=== PATIENT | female | born 1935 | race Caucasian/White ===

== ENCOUNTER 2024-08-17 12:03 | Outpatient (REF) | payer MEDICARE, SELFPAY ==
--- OUTSIDE RECORDS SUMMARY | 2024-08-17 12:06 | XMS_ITS ---
Author Organization [facility] Address [address] [place] [address] Care Team Providers Care Vp Director Of Creative Strategy Name Role Phone Gosia Butts MD Primary Care Provider Unavaila len Barrett, Janine Unavailable [phone] REASON FOR VISIT ON Encounters Encounter Location Date Provider Diagnosis [facility] [address] [place] [address] 11/03/2023 Janine Barrett Plan Of Treatment No Information Progress Notes * RAJIENMADonna OB:1935 (88 yo F)Acc No.[id number]:11/03/2023 Patient:?Chuyita Gardner :1935???Age:88 Y???Sex:Female [place], * true * Date:? Generated for Pricei rajat/Heron/eTransmitting on:?08/17/2024 12:06 PM EDT
--- OUTSIDE RECORDS SUMMARY | 2024-08-17 12:06 | XMS_ITS ---
Author Organization [facility] [place] Address [address] [place] [address] Care Team Providers Care Ledge Man Name Role Phone Gosia Butts MD Primary Care Provider Unavaila len Black, Janine Unavailable [phone] Allergies Allergen (clinical drug ingredient) Drug/Non Drug Allergy documented on EMR Reaction Allergy Type Onset Date Status alendronate Alendronate Sodium May affect hip Drug Allergy Active meperidine Demerol Unknown Drug Allergy Active lisinopril Lisinopril Unknown Drug Allergy Activ e naproxen Naprosyn nausea Drug Allergy Active Nifedical XL Unknown Drug Allergy Acti ve oxycodone Oxycodone Unknown Drug Allergy Active Results Component Value Reference Range Notes X ray : Foot, right 3V Reviewed date:02/01/2024 12:43:21 PM Interpretation:See Examination above Performing Lab: Notes/Report: See Examination above REASON FOR VISIT pcp-11/2023, Foot pain Medications Medication SIG (Take, Route, Frequency, Duration) Notes Start Date End Date Status Atenolol 50 MG 1 tablet Orally Once a day for 30 day(s) Active Omeprazole 20 MG 1 capsule Orally Onc e a day for 30 day(s) Active Alendronate Sodium 70 MG 1 tablet Orally for 30 day(s) Unknown Amoxicillin Active Losartan Potassium 50 MG 1 tablet Orally Once a day for 30 day(s) Active Estradiol 0.1 MG/GM as directed Vaginal Active Calcium 600-200 MG-UNIT as directed Orally Active Centrum Silver - as directed Orally Active Iron Complex - as directed Orally Active Aspirin 81 MG 1 tablet Orally Once a day for 30 day(s) Active hydroCHLOROthiazide 25 MG 1 tablet in th e morning Orally Once a day for 30 day(s) Active Klor-Con 10 10 MEQ 1 tablet with food Orally Twice a day for 30 day(s) Active Pravastatin Sodium 40 MG 1 tablet Orally Once a day for 30 day(s) Active Levothyroxine Sodium 75 MCG 1 tablet on an empty stomach in the morning Orally Once a day for 30 day(s) Active Social History Tobacco Use: Social History Observation Description Date Details (start date - stop date) Never Smoker NA - NA Tobacco Use/Smoking Question Answer Notes Are you a: nonsmoker Additional Findings: Tobacco Non-User Current no n-smoker Alcohol Screen Question Answer Notes Did you have a drink contain ing alcohol in the past year? Yes How often did you have a dri nk containing alcohol in the past year? Monthly or less (1 point) Points 1 Interpretation Negative Tobacco use other than smoking: Question Answer Notes Are you an other tobacco user? 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 Problem Hammer toe of right foot (M20.41) Active confirmed Vital Signs Height 5 ft 1 in in 02/01/2024 Weight 143 lbs 02/01/2024 BMI 27.02 kg/m2 02/01/2024 Encounters Encounter Location Date Provider Diagnosis [facility] [address] [address] 02/01/2024 Janine Black Pain in right foot M79.671 ; Javed's neuroma of right foot G57.61 ; Neuralgia and neuritis, unspecified M79.2 and Hammer toe of right foot M20.41 Assessments Encounter Date Diagnosis (ICD Code) Assessment Notes Treatment Notes Treatment Clinical Notes Section Notes 02/01/2024 Pain in right foot (ICD-10 - M79.671) 02/01/2024 Javed's neuroma of right foot (ICD-10 - G57.61) 02/01/2024 Neuralgia and neuritis, unspecified (ICD-10 - M79.2) 02/01/2024 Hammer toe of right foot (ICD-10 - M20.41) Plan Of Treatment Next Appt Details Follow Up: prn, Reason: Progress Notes * Donna WALLACE LD OB:1935 (88 yo F)Acc No.[id number]:02/01/2024 Progress Notes Patient:Chuyita Chambers Provider:?Janine Barrett DPM :1935???Age:88 Y???Sex:Female D ate:02/01/2024 Address:[address] [place], [place] [address] Pcp:oGsia Butts MD Subjective: * Chief Complaints: * ???Pcp-11/2023Foot pain * HPI: ???Foot Pain:?Nature:?burning, radiating, shooting, tingling.?Location:?Forefoot, RIGHT.?Duration:?, several months.?Onset:?unknown.?Course:?worse.?Aggravated:?shoes and pressure.?Treatments:?rest/alter normal daily activity, , change in shoes.?Misc:?previous metatarsl sx right 4th.? * ROS:?General/Constitutional:?Nausea?denies.?Vomiting?denies.?Hunger Thirst?denies.?Loss appetite?denies.?Chills?denies.?Fatigue?denies.?Fever?denies.?Night Sweats?denies.?Unexplained weight loss?denies.?Unexplained weight gain?denies.?HEENTM:?Dentures?denies.?Dizziness?denies.?Glasses/contacts?denies.?Retinopathy?de nies.?Blurred/double vision?denies.?TMJ?denies.?Discharge/drainage?denies.?Implants?denies.?Sore throat?denies.?Dental implants?denies.?Hard of hearing ?denies.?Difficulty chewing/swallowing/speaking?denies.?Nose bleeds?denies.?Sore mouth?denies.?Respiratory:?On Oxygen?denies.?Pneumonia/pleurisy?denies.?Bronchitis?denies.?Emphysema?denies.?C oughing?denies.?Cough blood?denies.?Shortness of breath?denies.?Wheezing?denies.?Cardiovascular:?Pacemaker?denies.?MVP?denies.?WPW?denies.?CHF?denies.?Heart attack?denies.?Septal defect?denies.?Rapid beat?denies.?Chest pain ?denies.?Atrial Fib.?denies.?Murmur/Palpitations?denies.?Gastrointestinal:?Hemorrhoids?denies.?Stomach/Abdominal pain?denies.?Dark blood stool?denies.?Irritable bowel ?admits.?Constipation?denies.?Diarrhea?denies.?Hematology:?Swelling?denies.?Clots?denies.?Varicose Veins?denies.?Bruising?denies.?Bleeding problem?denies.?Genitourinary:?Blood urine?denies.?Frequent/Painfu/urination/bladder control?denies.?Kidney stones?denies.?Infection (UTI)?denies.?Nephropathy?denies.?sex trans dis (STD)?denies.?Prostate?denies.?Musculoskeletal:?Hammertoes?denies.?Bunions?denies.?Back Pain?denies.?Muscle Cramps/ Resting?denies.?Muscle cramps / walking?denies.?Generalized aches and pains?denies.?Weakness?denies.?Integ.:?Akers?denies.?Scars?denies.?Corns/calluses?denies.?Ingrown nails?denies.?Painful nails?denies.?Open Sores?denies.?Rashes?denies.?Neurologic:?Difficulty sleeping?denies.?Brain disorder?denies.?Numbness?denies.?Balance trouble?denies.?Confusion?denies.?Fainting/blackouts?denies.?Tingling?denies.?Tr emors?denies.? * Medical History:? * Surgical History:?patent pari tus 05/1957dilatation and curettage 12/1966hysterectomy 08/1971Hernia Repair 08/1971bladder suspension 08/1971basal cell carcinoma 09/2015, 07/2013, 12/2010,09/2010salpingo-oophorectomy 02/2012cataract surgery 11/2015,10/2015Meniscus repair 05/2016Lipoma 02/2017knee replacement, right 08/31/2022left knee replacement 03/17/2022hip dislocation 04/1946 * Hospitalization/Major Diagno stic Procedure:?[facility] - pt was in pain couldn't striahgten her body out. Had UTI infection near kidneys. 04/11/2018childbirth 05/1959,07/1961,03/1968,12/1969 * Family History:?Mother: dece ased, diagnosed with Family history of arthritis, Unspecified cerebral artery occlusion with cerebral infarction.?Father: , diagnosed with Other malignant neoplasm of unspecified site.?Siblings: diagnosed with Other malignant neoplasm of unspecified site.? * Social History:?Tobacco Use:?Tobacco Use/Smoking?Are you a:?nonsmoker ?Additional Findings: Tobacco Non-User?Current non-smoker ?Tobacco use other than smoking?Are you an other tobacco user??No ???Drugs/Alcohol:?Drugs?Have you used drugs other than those for medical reasons in the past 12 months??No ?Alcohol Screen?Did you have a drink containing alcohol in the past year??Yes ?How often did you have a drink containing alcohol in the past year??Monthly or less (1 point) ?Points?1 ?Interpretation?Negative ???Miscellaneous:?no Caffeine. ?Children: yes, 4. ?no Exercise. ?Marital status: . 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 * Medications:?TakingAmoxicill in Atenolol 50 MG Tablet 1 tablet Orally Once a dayOmeprazole 20 MG Capsule Delayed Release 1 capsule Orally Once a dayLosartan Potassium 50 MG Tablet 1 tablet Orally Once a dayPravastatin Sodium 40 MG Tablet 1 tablet Orally Once a dayhydroCHLOROthiazide 25 MG Tablet 1 tablet in the morning Orally Once a dayKlor-Con 10 10 MEQ Tablet Extended Release 1 tablet with food Orally Twice a dayLevothyroxine Sodium 75 MCG Tablet 1 tablet on an empty stomach in the morning Orally Once a dayAspirin 81 MG Tablet Chewable 1 tablet Orally Once a dayIron Complex - Capsule as directed Orally Calcium 600-200 MG-UNIT Tablet as directed Orally Centrum Silver - Tablet as directed Orally Estradiol 0.1 MG/GM Cream as directed Vaginal Taking Amoxicillin Taking Atenolol 50 MG Tablet 1 tablet Orally Once a dayTaking Omeprazole 20 MG Capsule Delayed Release 1 capsule Orally Once a dayTaking Losartan Potassium 50 MG Tablet 1 tablet Orally Once a dayTaking Pravastatin Sodium 40 MG Tablet 1 tablet Orally Once a dayTaking hydroCHLOROthiazide 25 MG Tablet 1 tablet in the morning Orally Once a dayTaking Klor-Con 10 10 MEQ Tablet Extended Release 1 tablet with food Orally Twice a dayTaking Levothyroxine Sodium 75 MCG Tablet 1 tablet on an empty stomach in the morning Orally Once a dayTaking Aspirin 81 MG Tablet Chewable 1 tablet Orally Once a dayTaking Iron Complex - Capsule as directed Orally Taking Calcium 600-200 MG-UNIT Tablet as directed Orally Taking Centrum Silver - Tablet as directed Orally Taking Estradiol 0.1 MG/GM Cream as directed Vaginal UnknownAlendronate Sodium 70 MG Tablet 1 tablet Orally Medication List reviewed and reconciled with the patientUnknown Alendronate Sodium 70 MG Tablet 1 tablet Orally Medication List reviewed and reconciled with the patient * Allergies:?DemerolAlendronat e Sodium: May affect hipNaprosyn: nauseaOxycodoneLisinoprilNifedical XLyes[Allergies Verified] Objective: * Vitals:?Ht: 5 ft 1 in, Wt: 1 43, BMI: 27.02, Shoe size: 9, Ht-cm: 154.94 cm, Wt- k.86 kg. * Examination: ???General Examination: ?GENERAL APPEARANCE:?Reveals a pleasant, alert, well nourished, well- developed, well hydrated individual, who demonstrates proper attention to hygiene/body habitus, and is in no acute distress, Pt serves as own historian for office visit today , Pt accompanied by , Daughter , and/who is physically present in exam room at time of visit.?ORIENTED:?person, place, and time.?Neuroma Pain: ?PALPATION:?Pain with direct palpation of the intermetatarsal space, Pain with lateral compression of metatarsals, positive Latia's click, 3rd interspace, RIGHT.?Vascular: ?DP PULSES(B):?2/4, B/L.?PT PULSES(B):?2/4, B/L.?CAPILLARY FILL TIME:?immediate, all digits, B/L.?TROPHIC CONDITION-TEXTURE/ELASTICITY/TURGOR/HAIR GROWTH(B):?normal, B/L.?TEMPERTURE GRADIENT(C):?normal, warm to cool, proximal to distal, B/L, B/L.?PIGMENTATION:?normal, B/L.?EDEMA(C):?absent, B/L.?Neurological: ?SENSORY:?Neurological exam reveals intact sensorium, pain sensation normal, vibration sensation intact, pinprick sensation is normal in the lower extremities, , , burning , shooting/radiating sensation , Forefoot , Right.?Orthopedic: ?DIGITAL DEFORMITIES:?Digital contracture, PIPJ, 2-5 B/L, incompl-reducible with WB, or to push-up test, no over, nor underlapping.?MPJ PATHOLOGY:?Atrophied anterior fat pad , No MPJ pain with ROM , 3rd , 4th no POP MTH 3,4 right.?X-Rays - IMAGING REPORT: ?Clinical Indication(s):? Evaluate for Fracture.?Views:? 3 views of Foot, AP, LAT, LO, RIGHT.?Findings:?mild generalized decrease in bone density , dorsal degenerative changes of the tarsal joints.?Digits:?short 4th metatarsal with evidence of previous surgery, hypertrophy of bone , Shows close proximity of MTHs 3/4 with Estrada sign 3rd Interspace.?Fracture:?Negative fractures identified.? Assessment: * Assessment: 1.?Pain in right foot - M79. 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 Plan: * Treatment: * Procedure Codes:?56701 X-RAY EXAM OF RIGHT FOOT 3V, Modifiers: 26 , RT * Preventive Medicine:? ??Counseling:?Discussion:?-04: Office or other outpatient visit for the evaluation and management of a new patient, which required a medically appropriate history and/or examination and MODERATE level of DECISION MAKING for: 1 OR MORE CHRONIC PROBLEM(S) THATS WORSENING, 2 STABLE CHRONIC PROBLEMS, A NEWLY DIAGNOSED PROBLEM WITH UNCERTAIN PROGNOSIS, AN ACUTE COMPLICATED INJURY WITH MULTIPLE TREATMENT OPTIONS, OR AN ACUTE PROBLEM WITH ACCOMPANYING SYSTEMIC SYMPTOMS, THAT POSE(S) A MODERATE RISK OF MORBIDITY. THIS CONDITION MAY ALSO INCLUDE RX DRUG MANAGEMENT, OR A DECISON FOR MINOR SURGERY. The visit on the day of the encounter encompassed interpreting the data and educating the patient as to the nature of their condition, treatment options available according to their individual PMH, meds, allergies, and overall health/living conditions, as well as any potential risks or complications that may occur from a failure to adhere to, and participate in, the recommended course of therapy. The discussion included a complete verbal, and/or written explanation of the examination results, any x-rays taken, the proposed diagnosis, and outline of the treatment plan. A schedule for future care needs was also explained. The patient verbalized an understanding of the instructions at this time and agreed to be an active participant in their treatment. If the patient should think of any questions or concerns after the visit, I have encouraged the patient to call the office.?BioMech.:?Discussed and reviewed the X-rays with the patient. We discussed how the findings relate to the patients symptoms/complaints. Answered any and all questions., I discussed the Pts foot biomechanics with them and how it relates to their problem, Recommended Topical analgesics including biofreeze/aspercream/Voltaren gel.?Neuroma:?The patient was counseled on the diagnosis, possible etiologies (including foot structure/foot function/nonsupportive shoes/activity), treatment options, and importance for adherence to recommendations regarding the treatment for a Neuroma. The advantages and disadvantages of the treatment options including medications available, forefoot offloading padding, mechanically accomidative orthotics, supportive shoegear with adequate forefoot width, cortisone injection(s), experimental sclerosis therapy, and surgical treatment options including nerve release, nerve relocation, and complete nerve removal were discussed in detail with each procedures outcomes and possible sequlea (i.e.failure of procedure, stump neuroma formation, infection, chronic scarring, chronic pain). Patient questions re: the potential successes of conservative vs surgical treatment options were reviewed and their answers were understood. The patient verbally confirmed a full understanding of the above, Recommended Topical analgesics including Aspercream/Voltaren gel.?Shoe Gear Counseling:?The patient and I reviewed the types of shoes they should be wearing. My recommendation included obtaining a well-fitted shoe with a good supportive, non-foldable nor twistable sole, plenty of toe/room for the forefoot, and proper arch support. Based on todays examination, I recommended the patient look for new shoes, by having their feet professionally measured. We discussed that generally the best time of the day for a shoe fitting is the afternoon. Different shoes types and brands to best match the patients occupation and vocation were discussed. Specific brand selection will be up to the patient, their individual foot condition/deformities, and fit. The patient and I reviewed the standard new shoe break in period by wearing them for a few hours a day while checking for redness or sores as wear time is increased. The patient verbally confirmed to understanding the information discussed, Recommend supportive running shoes for patient, discussed various shoe brands including Bowser, Asics, New Balance, Saucony. Discussed types of shoes to avoid for patients foot type..?Steriod Injection:?I explained that a steroid and local anesthetic injections are administered to relieve pain and inflammation and thereby meant to improve function. I explained the possible complications including but not limited to signs/symptoms of steroid flare, infection, bruising, atrophy, discoloration of skin, change/deviation in toe position, and that additional injections may be necessary, cortisone post-injection informative educational handout was dispensed to and reviewed with the patient, Pt defers injection today.? * Follow Up:?prn * Images: * Sign off status: Completed true * Provider:?Janine Barrett DPM Date:?2023 Generated for Leon earl/Heron/eTsiditting on:?08/17/2024 12:06 PM EDT History and Physical Notes * HPI (History of Present Illness) Category Sub-Category Detail Notes Category Not es Foot Pain Nature: burning, radiating, shooting , tingling Location: Forefoot, RIGHT Duration: , several months Onset: unknown Course: worse Aggravated: shoes and pressure Treatments: rest/alter normal da padmini activity, , change in shoes Misc: previous metatarsl s x right 4th Examination Category Sub-Category Detail Notes Category Not es Neuroma Pain PALPATION: Pain with direct palpation of the intermetatarsal space, Pain with lateral compression of metatarsals, positive Latia's click, 3rd interspace, RIGHT Neurological SENSORY: Neurological exa m reveals intact sensorium, pain sensation normal, vibration sensation intact, pinprick sensation is normal in the lower extremities, , , burning , shooting/radiating sensation , Forefoot , Right Orthopedic DIGITAL DEFORMITIES: Digital con tracture, PIPJ, 2-5 B/L, incompl-reducible with WB, or to push-up test, no over, nor underlapping MPJ PATHOLOGY: Atrophied anterior f at pad , No MPJ pain with ROM , 3rd , 4th no POP MTH 3,4 right General Examination GENERAL APPEARANCE: Reveals a pleasant, alert, well nourished, well-developed, well hydrated individual, who demonstrates proper attention to hygiene/body habitus, and is in no acute distress, Pt serves as own historian for office visit today , Pt accompanied by , Daughter , and/who is physically present in exam room at time of visit ORIENTED: person, place, and t willam Vascular DP PULSES (B): 2/4, B/L PT PULSES (B): 2/4, B/L CAPILLARY FILL TIME: immediate, all digi ts, B/L TEMPERTURE GRADIENT (C): normal, warm to cool, proximal to distal, B/L, B/L TROPHIC CONDITION-TEXTURE/ELASTICITY/TURGOR/HAIR GROWTH (B): normal, B/L EDEMA (C): absent, B/L PIGMENTATION: normal, B/L X-Rays - IMAGING REPORT Findings: mild gen eralized decrease in bone density , dorsal degenerative changes of the tarsal joints Fracture: Negative fractures i dentified Digits: short 4th metatarsal with evidence of previous surgery, hypertrophy of bone , Shows close proximity of MTHs 3/4 with Estrada sign 3rd Interspace Views: 3 views of Foot, AP, LAT, LO, RIGHT Clinical Indication(s): Evaluate for Fra cture
--- OUTSIDE RECORDS SUMMARY | 2024-08-17 12:06 | XMS_ITS | Patient Health Record ---
Author Organization [facility] Address [address] [place] [address] Care Team Providers Care Seasonal Driver Name Role Phone Gosia Butts MD Primary Care Provider Unavaila len Black, Janine Unavailable [phone] Allergies Allergen (clinical drug ingredient) Drug/Non Drug [...] above Performing Lab: Notes/Report: See Examination above Reason For Referral No Information Medications Medication SIG (Take, Route, Frequency, Duration) Notes Start Date End Date Status Atenolol 50 MG 1 tablet Orally Once a day for 30 day(s) Active Estradiol 0.1 MG/GM as directed Vaginal Active Omeprazole 20 MG 1 capsule Orally Onc e a day for 30 day(s) Active Alendronate Sodium 70 MG 1 tablet Orally for 30 day(s) Unknown Calcium 600-200 MG-UNIT as directed Orally Active Amoxicillin Active Centrum Silver - as directed Orally Active hydroCHLOROthiazide 25 MG 1 tablet in th e morning Orally Once a day for 30 day(s) Active Klor-Con 10 10 MEQ 1 tablet with food Orally Twice a day for 30 day(s) Active Losartan Potassium 50 MG 1 tablet Orally Once a day for 30 day(s) Active Pravastatin Sodium 40 MG 1 tablet Orally Once a day for 30 day(s) Active Iron Complex - as directed Orally Active Levothyroxine Sodium 75 MCG 1 tablet on an empty stomach in the morning Orally Once a day for 30 day(s) Active Aspirin 81 MG 1 tablet Orally [...] Problem Status W/U Status Risk Notes Problem Acquired hammer toe of left foot (2335296822425 103) Other hammer toe(s) (acquired), left foot (M20.42) Active confirmed Problem Hammer toe of right foot (M20.41) Active confirmed Problem Javed's neuroma of right foot (3381460053015 08) 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 Vital Signs Height 5 ft 1 in in 02/01/2024 Weight 143 lbs 02/01/2024 BMI 27.02 kg/m2 02/01/2024 Encounters Encounter Location Date Provider Diagnosis [facility] [address] [place] [address] 02/01/2024 Janine Black Pain in right foot M79.671 ; Javed's neuroma of right foot G57.61 ; Neuralgia and neuritis, unspecified M79.2 and Hammer toe of right foot M20.[address] [facility] [address] 11/03/2023 Janine Barrett [address] [address] 11/25/2023 Janine Barrett Assessments Encounter Date Diagnosis (ICD Code) Assessment Notes Treatment Notes Treatment Clinical Notes Section Notes 02/01/2024 Pain in right foot (ICD-10 - M79.671) 02/01/2024 Javed's neuroma of right foot (ICD-10 - G57.61) 02/01/2024 Neuralgia and neuritis, unspecified (ICD-10 - M79.2) 02/01/2024 Hammer toe of right foot (ICD-10 - M20.41) Plan Of Treatment Pending Test Test Name Order Date 23858-Gyhyydkn Plate 04/20/2018 68263- Debride <25 sq cm 05/09/2018 Insurance Providers Payer Name Payer Address Payer Phone Subscriber Number Group Number Insured Name Patient Relationship to Insured Coverage Start Date Coverage End Date Medicare National Govt [employer] [address] [place] [phone] [id number] Donna Figueroa Self - patient is the insured [employer] [address] [place] [address] [phone] [id number] Aspen barba Donna Self - patient is the insured Medical (General) History Medical History History ICD Code Anemia Back,Hip,and Knee pain Cholesterol Cataracts Measles Chicken pox Hypertension thyroid Headaches/Migraines Surgical History Surgery Date(Month/Year) patent ductus 05/1957 dilatation and curettage 12/1966 hysterectomy 08/1971 Hernia Repair 08/1971 bladder suspension 08/1971 basal cell carcinoma 09/2015, 07/2013, 12/04 011,09/2010 salpingo-oophorectomy 02/2012 cataract surgery 11/2015,10/2015 Meniscus repair 05/2016 Lipoma 02/2017 knee replacement, right 08/31/2022 left knee replacement 03/17/2022 hip dislocation 04/1946 Hospitalization History Reason Date(Month/Year) childbirth 05/1959,07/1961,03/04 968,12/1969 [facility] - pt was in pain could n't striahgten her body out. Had UTI infection near kidneys. 04/11/2018
--- OUTSIDE RECORDS SUMMARY | 2024-08-17 12:07 | XMS_ITS ---
Author Name [facility] Organization Unknown History of Medication Use Medication Directions Dispensed Refills Start Date End Date Stat us nitrofurantoin, macrocrystal-monohydrate, (MACROBID) 100 mg capsule Take 1 capsule (100 mg total) by mouth 2 (two) times a day for 5 days. 04/26/2024 active omeprazole (PriLOSEC) [address] capsule TAKE 1 CAPSULE BY MOUTH EVERY DAY 03/26/2024 active estradioL (ESTRACE) 0.01 % (0.1 mg/gram) vaginal cream Insert 1 g into the vagina every other day. . 02/10/2024 active losartan (COZAAR) 50 mg tablet TAKE 1 TABLET BY MOUTH EVERY DAY 02/07/2024 active atenoloL (TENORMIN) 50 mg tablet Take 1 tablet (50 mg total) by mouth 1 (one) time each day. 11/22/2023 active pravastatin (PRAVACHOL) 20 mg tablet Take 1 tablet (20 mg total) by mouth 1 (one) time each day. 11/22/2023 active levothyroxine (SYNTHROID, LEVOTHROID) 75 mcg tablet Sig - Route: Take 1 Tablet by mouth daily. Take extra tab once a week 03/18/2022 active hydroCHLOROthiazide (HYDRODIURIL) 25 mg tablet Take 1 tablet (25 mg total) by mouth 1 (one) time each day. 03/17/2022 active potassium chloride (KLOR-CON) 10 mEq CR tablet Take 1 tablet (10 mEq total) by mouth 2 (two) times a day. 03/17/2022 active amoxicillin (AMOXIL) 500 mg capsule Sig - Route: Take 1 Capsule by mouth See Admin Instructions. 4 CAPSULES ! HOUR BEFORE DENTAL WORK active aspirin 81 mg EC tablet Take by mouth 1 (one) time each day. active calcium citrate-vitamin D3 250 mg-5 mcg (200 unit) tablet one tablet twice daily active multivit-min/folic acid/lutein (CENTRUM SILVER ORAL) one tablet daily active Problems Problem Status Onset Date Problem Type Date of Resoluti on Source Irritant dermatitis active 2017-12-08 [facility]Act [facility] Vulvar atrophy active 2017-12-08 [facility]Act [facility] Sacroiliitis active 2018-08-21 ProblemAct [facility] Basal cell carcinoma active 2015-07-15 ProblemAct [facility] Thoracic aortic aneurysm active 2014-09-23 ProblemAct [facility] Rectocele, female active 2016-02-27 ProblemAct [facility] Osteoporosis active 2016-03-13 ProblemAct [facility] Coronary artery calcification seen on CAT scan active 2016-05-04 ProblemAct [facility] Osteoarthritis of right knee active 2014-02-11 ProblemAct [facility] Osteopenia active 2024-02-09 ProblemAct [facility] Hypertension active 2005-05-07 ProblemAct [facility] Hyperlipidemia active 2013-01-22 ProblemAct [facility] Colitis active 2012-07-25 ProblemAct [facility] 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 SARS-CoV-2 COVID-19, mRNA, LNP-S, preservative free 01/11/2023 [facility] completed [employer] SARS-CoV-2 COVID-19, mRNA, LNP-S, preservative free 01/14/2022 [facility] completed Influenza Quadravalent, 0.5m l (Fluzone High-dose) 65yo and older 01/11/2022 [facility] comple ghislaine Pfizer SARS-CoV-2 COVID-19, mRNA, LNP-S, preservative free 07/28/2021 [facility] completed Pfizer SARS-CoV-2 COVID-19, mRNA, LNP-S, preservative free 05/08/2020 [facility] [id number] completed Pfizer SARS-CoV-2 COVID-19, mRNA, LNP-S, preservative free 04/17/2020 [facility] [id number] completed Influenza trivalent, 0.5mL, preservative free (Fluarix; FluLaval; Fluzone) ages 6mo and older (Afluria) 3 years and older 11/27/2019 [facility] completed Zoster recombinant (Shingrix ) 19yo and older 03/21/2019 [facility] completed Influenza Quadravalent, 0.5m l (Fluzone High-dose) 65yo and older 01/25/2019 [facility] comple ghislaine Influenza trivalent, 0.5mL ( Fluad) 65yo and older 01/22/2019 [facility] completed Zoster recombinant (Shingrix ) 19yo and older 12/21/2018 [facility] completed Influenza Quadravalent, 0.5m l (Fluzone High-dose) 65yo and older 12/16/2017 [facility] comple ghislaine Influenza trivalent, 0.5mL ( Fluad) 65yo and older 12/11/2017 [facility] completed Influenza Quadravalent, 0.5m l (Fluzone High-dose) 65yo and older 12/08/2016 [facility] comple ghislaine Influenza trivalent, 0.5mL, preservative free (Fluarix; FluLaval; Fluzone) ages 6mo and older (Afluria) 3 years and older 02/04/2016 [facility] [id number] completed Pneumococcal conjugate 13 va lent (Prevnar 13, PCV13) 2mo and older 04/18/2015 [facility] [id number] complet ed Influenza trivalent, 0.5mL ( Fluad) 65yo and older 12/26/2014 [facility] [id number] completed Influenza trivalent, 0.5mL, preservative free (Fluarix; FluLaval; Fluzone) ages 6mo and older (Afluria) 3 years and older 01/09/2014 [facility] [id number] completed Influenza trivalent, 0.5mL, preservative free (Fluarix; FluLaval; Fluzone) ages 6mo and older (Afluria) 3 years and older 01/22/2013 [facility] [id number] completed Tdap Tetanus diptheria acell ular pertussis (Boostrix; Adacel) 7yo and older 07/25/2012 [facility] [id number] completed Influenza trivalent, 0.5mL, preservative free (Fluarix; FluLaval; Fluzone) ages 6mo and older (Afluria) 3 years and older 01/24/2012 [facility] [id number] completed Zoster Live 08/03/2011 [facility] [id number] completed Influenza trivalent, 0.5mL, preservative free (Fluarix; FluLaval; Fluzone) ages 6mo and older (Afluria) 3 years and older 01/07/2011 [facility] [id number] completed Influenza trivalent, 0.5mL, preservative free (Fluarix; FluLaval; Fluzone) ages 6mo and older (Afluria) 3 years and older 02/05/2010 [facility] [id number] completed H1N1 Inj Preservative Free 05/06/2009 [facility] [id number] completed Influenza trivalent, 0.5mL, preservative free (Fluarix; FluLaval; Fluzone) ages 6mo and older (Afluria) 3 years and older 12/23/2008 [facility] [id number] completed Influenza trivalent, 0.5mL, preservative free (Fluarix; FluLaval; Fluzone) ages 6mo and older (Afluria) 3 years and older 01/30/2008 [facility] [id number] completed Influenza trivalent, 0.5mL, preservative free (Fluarix; FluLaval; Fluzone) ages 6mo and older (Afluria) 3 years and older 02/10/2007 [facility] [id number] completed Td Tetanus diptheria (Tdvax) 7yo and older 02/10/2007 [facility] TD-182 completed Influenza trivalent, 0.5mL, preservative free (Fluarix; FluLaval; Fluzone) ages 6mo and older (Afluria) 3 years and older 03/23/2006 [facility] [id number] completed Influenza trivalent, 0.5mL, preservative free (Fluarix; FluLaval; Fluzone) ages 6mo and older (Afluria) 3 years and older 01/27/2005 [facility] completed Pneumococcal polysaccharide 23 valent (Pneumovax 23) 2yo and older 07/02/2002 [facility] selbyted
[2024-08-17 13:02] LABS: Anion Gap 14 (12-20); Blood Urea Nitrogen 17 mg/dL (9-16); Calcium 9.5 mg/dL (8.4-10.2); Carbon Dioxide 29 mmol/L (22-29); Chloride 103 mmol/L (96-108); Estimated Glomerular Filt Rate > 60; Glucose Random 97 mg/dL (60-115); Potassium 4.4 mmol/L (3.3-5.1); Sodium 142 mmol/L (135-145)
[2024-08-17 13:20] LABS: TSH reflex Free T4 2.43 uIU/mL (0.32-4.0)
[2024-08-17 13:33] LABS: Folate 16.7 ng/mL (> or = 4.0); Vitamin B12 432 pg/mL (200-900)
== END 2024-08-17 12:04 | disposition home or self-care (01) ==
LOC: HO.LAB 12:03
PROVIDERS: PCP Internal Medicine; Visit Provider Psychiatry & Neurology Neurology
DX: G31.84 Mild cognitive impairment of uncertain or unknown etiology (principal)
CPT/HCPCS: 36415; 80048; 82607; 82746; 84443

== ENCOUNTER 2024-08-21 16:40 | Outpatient (REF) | payer MEDICARE, SELFPAY ==
--- NOTE | ~2024-08-21 | MR_ITS ---
EXAMINATION: MR BRAIN WITHOUT CONTRAST CLINICAL INFORMATION: MCI COMPARISON: Correlated to CT dated November 27, 2020. TECHNIQUE: MRI of the brain was obtained using routine sequences without contrast. FINDINGS: No restricted diffusion. Focal slightly hyperintense FLAIR and susceptibility signal abnormality in the right cerebellum near the vermis. Bilateral multifocal patchy and punctate subcortical and deep white matter hyperintense T2 FLAIR signal involving centrum semiovale and santiago radiata. Old lacunar infarcts in the basal ganglia and right cerebellum. Prominence of the extra-axial CSF spaces cerebral sulci, ventricles likely central volume loss. Bustos-white matter differentiation is normal. No acute intracranial hemorrhage, mass effect, midline shift, hydrocephalus or herniation. Sellar/suprasellar region demonstrated no signal abnormality or masses. Craniocervical junction demonstrates normal position of the cerebellar tonsils. There is a pannus formation in the periodontal region. Flow-void signal within the main vessels is normal. MR/MR head/brain wo con IMPRESSION: Global cerebral atrophy. Small vessel occlusive disease. Cavernoma, right cerebellum. Electronically signed by: Zac Manzanares MD 08/22/2024 07:24 AM EDT
--- OUTSIDE RECORDS SUMMARY | 2024-08-21 16:49 | XMS_ITS ---
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 Problem Acquired hammer toe of right foot (1644560757353 105) Hammer toe of right foot (M20.41) Active confirmed Vital Signs Height 5 ft 1 in in 02/01/2024 Weight 143 lbs 02/01/2024 BMI 27.02 kg/m2 02/01/2024 Encounters Encounter Location Date Provider Diagnosis [facility] [address] [address] 02/01/2024 Janine Black Pain in right foot [...] prn, Reason: Progress Notes * Donna WALLACE OB:1935 (88 yo F)Acc No.[id number]:02/01/2024 Progress Notes Patient:?Chuyita Wallace Provider:?Janine Barrett DPM :1935???Age:88 Y???Sex:Female D ate:02/01/2024 Address:[address] [place], [place] [id number] Pcp:Gosia Butts MD Subjective: * Chief Complaints: * [...] - M20.41? Plan: * Treatment: * Procedure Codes:?38551 X-RAY EXAM OF RIGHT FOOT 3V, Modifiers: [...] Provider:?Janine Barrett DPM Date:?2023 Generated for Leon earl/Heron/Noemyitting on:?08/21/2024 04:49 PM EDT History and Physical Notes * [...]
--- OUTSIDE RECORDS SUMMARY | 2024-08-21 16:49 | XMS_ITS | Patient Health Record ---
Author Organization [facility] Address [address] [place] [address] Care Team Providers Care Blasting Entry Specialist Name Role Phone Gosia Butts MD Primary Care Provider Unavaila len Black, Janine Unavailable [phone] Allergies Allergen (clinical drug ingredient) Drug/Non Drug [...] Problem Acquired hammer toe of left foot (6479615920071 103) Other hammer toe(s) (acquired), left foot (M20.42) Active confirmed Problem Acquired hammer toe of right foot (9575371565797 105) Hammer toe of right foot (M20.41) Active confirmed Problem Javed's neuroma of right foot (0014446349737 08) 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 Vital Signs Height 5 ft 1 in in 02/01/2024 Weight 143 lbs 02/01/2024 BMI 27.02 kg/m2 02/01/2024 Encounters Encounter [facility] Date [facility] [address] [facility] Janine Black Pain in right foot M79.671 ; Javed's neuroma of right foot G57.61 ; Neuralgia and neuritis, unspecified M79.2 and Hammer toe of right foot M20.41 [facility] [address] 11/03/2023 Janine Barrett [facility] [address] 11/25/2023 Janine Barrett Assessments Encounter Date Diagnosis (ICD Code) Assessment Notes Treatment Notes Treatment Clinical Notes Section Notes 02/01/2024 Pain in right foot (ICD-10 - M79.671) 02/01/2024 Javed's neuroma of right foot (ICD-10 - G57.61) 02/01/2024 Neuralgia and neuritis, unspecified (ICD-10 - M79.2) 02/01/2024 Hammer toe of right foot (ICD-10 - M20.41) Plan Of Treatment Pending Test Test Name Order Date [id number] Plate 04/20/2018 22912- Debride <25 sq cm 05/09/2018 Insurance Providers Payer Name Payer Address Payer Phone Subscriber Number Group Number Insured Name Patient Relationship to Insured Coverage Start Date Coverage End Date Medicare National Govt [employer] [address] [place] [phone] [id number] Donna Figueroa Self - patient is the insured [employer] [address] [place] [address] [phone] [id number] Donna Figueroa Self - patient is the insured Medical [...]
--- OUTSIDE RECORDS SUMMARY | 2024-08-21 16:49 | XMS_ITS ---
Author Organization [facility] Address [address] [place] [address] Care Team Providers Care Metal Trades Instructor Name Role Phone Gosia Butts MD Primary Care Provider Unavaila len Barrett, Janine Unavailable [phone] REASON FOR VISIT PROSPECTING DRILLER HELPER PPWK Entered Encounters Encounter Location Date Provider Diagnosis [facility] [address] [place] [address] 11/25/2023 Janine Barrett Plan Of Treatment No Information Progress Notes * Donna WALLACE OB:1935 (88 yo F)Acc No.[id number]:11/25/2023 Patient:?Chuyita Wallace jossy Ilir :1935???Age:88 Y???Sex:Female [place], * true * Date:? Generated for Leon earl/Heron/eTransmitting on:?08/21/2024 04:49 PM EDT
--- OUTSIDE RECORDS SUMMARY | 2024-08-21 16:50 | XMS_ITS ---
Author Organization [facility] Address [address] [place] [address] Care Team Providers Care Detail Assembler Name Role Phone Gosia Butts MD Primary Care Provider Unavaila len Barrett, Janine Unavailable [phone] REASON FOR VISIT ON Encounters Encounter Location Date Provider Diagnosis [facility] [address] [place] [address] 11/03/2023 Janine Barrett Plan Of Treatment No Information Progress Notes * RAJIENMADonna OB:1935 (88 yo F)Acc No.[id number]:11/03/2023 Patient:?Chuyita Gardner :1935???Age:88 Y???Sex:Female Address:[address] [place], [place], * true * Date:? Generated for Pricei rajat/Heron/eTransmitting on:?08/21/2024 04:49 PM EDT
== END 2024-08-21 16:41 | disposition home or self-care (01) ==
LOC: HO.MRI 16:40
PROVIDERS: Visit Provider Psychiatry & Neurology Neurology
DX: G31.84 Mild cognitive impairment of uncertain or unknown etiology (principal)
CPT/HCPCS: 70551

== ENCOUNTER → 2024-08-21 17:15 | Outpatient (BNV) | payer MEDICARE, SELFPAY | PROVIDERS: Visit Provider Radiology Diagnostic Radiology | DX: I67.89 Other cerebrovascular disease (principal); G93.89 Other specified disorders of brain; Q28.3 Other malformations of cerebral vessels | CPT/HCPCS: 70551 ==

== ENCOUNTER 2024-10-02 09:33 | Outpatient (AMB) | payer MEDICARE, SELFPAY ==
--- OUTSIDE RECORDS SUMMARY | 2024-10-01 08:45 | XMS_ITS | Encounter Summary ---
Author Organization [facility] Address [address] [place] [address] Care Team Providers Care Business Intern Name Role Phone Sangeetha Michaelsmanabelardo CHAN Primary Care Provider [phone] Reason for Visit * Reason Comments Post-op Encounter Details Date Type Department Care Team (Late st Contact Info) Description 10/01/2024 8:45 AM EDT Office Visit Urogynecology - [place] [address] [place] [address] Candice Madrid MD [address] [place] [address] [address] [place] [address] Postop check (Primary Dx); CHALO (stress urinary incontinence, female); Prolapse of posterior vaginal wall; Vaginal vault prolapse; Enterocele Social History Tobacco Use Types Packs/Day Years Used Date Smoking Tobacco: Never Smokeless Tobacco: Never Alcohol Use Standard Drinks/Week Comments Yes 0 (1 standard drink = 0.6 oz pur e alcohol) rarely Housing Instability Answer Date Recorde d Are you worried that in the next 2 months you may not have stable housing? No 10/01/2024 Food Access & Nutrition Answer Date Rec orded Do you have access to a vari ety of food including fruits and vegetables? Yes 10/01/2024 Health Literacy Answer Date Recorded How often do you need to hav e someone help you when you read instructions, pamphlets, or other written material from your doctor or pharmacy? Never 10/01/2024 Caregiver: How often do you need to have someone help you when you read instructions, pamphlets, or other written material from your doctor or pharmacy? Not on file 10/01/2024 Financial Risk Answer Date Recorded How hard is it for you to pa y for the very basics like food, housing, medical care, and air conditioning / heating? Not very hard 10/01/2024 Transportation Answer Date Recorded Has the lack of transportati on kept you from meetings, work, or from getting things needed for daily living? No Has the lack of transportati on kept you from medical appointments or from getting medications? No 10/01/2024 Social Isolation Answer Date Recorded How often do you feel lonely or isolated from th ose around you? Never 10/01/2024 Food Risk Answer Date Recorded Within the past 12 months we worried whether our food would run out before we got money to buy more. Never true 10/01/2024 Within the past 12 months th e food we bought just didn't last and we didn't have money to get more. Never true 10/01/2024 Dependent Care Answer Date Recorded Do you need help finding or paying for care for your loved ones. For example, registered nurse maternal child or elderly care for an older adult? No 10/01/2024 Education Answer Date Recorded Do you think completing more education or training, like finishing a GED, going to college, or learning a trade, would be helpful for you? No 10/01/2024 Employment and Income Answer Date Recor ded During the last four weeks, have you been actively looking for work? No 10/01/2024 Living Situation Answer Date Recorded What is your living situation? 0 10/01/2024 Interpersonal Safety Answer Date Record ed Physical Abuse 09/17/2024 Verbal Abuse 09/17/2024 Comments No Sex and Gender Information Value Date Recorded Sex Assigned at Not on file Legal Sex Female 9:55 AM EST Gender Identity Not on file Sexual Orientation Not on file documented as of this encounter Progress Notes * Candice Madrid MD - 10/01/2024 8:45 AM EDT UROGYNECOLOGY POSTOPERATIVE EVALUATION DATE: 10/01/2024 Donna Gardner is a 89 y.o. who presents for examination. She is s/p colpocleisis (Total), enterocele repair, vaginal approach, posterior colporrhaphy with perineorrhaphy, and retropubic midurethral sling with cystourethroscopy. She was discharged home POD#0 without a catheter. Her recovery has been notable for >100K klebsiella pneumoniae (I - macrobid) Voiding: feels like she is completely emptying Urinary incontinence: denies Bowel Movements: no difficulty, reports regular, soft bowel movements. Pain: none Bleeding: minimal Discharge: none ROS: None except as mentioned in the HPI OBJECTIVE: Physical Exam General - Awake, alert, no acute distress Psychiatric: oriented to time, place, and person Head: normocephalic atraumatic Pulmonary: normal respiratory effort; speaking in full sentences comfortably Abdominal: no masses, tenderness or rebound Suprapubic incisions: well healed Pelvic Exam: External genitalia: normal Urethra: normal appearance Suture lines intact. No rectovaginal or retropubic hematomas. No prolapse. No sling exposure. A/P: Donna Gardner is a 89 y.o. s/p colpocleisis (Total), enterocele repair, vaginal approach, posterior colporrhaphy with perineorrhaphy, and retropubic midurethral sling with cystourethroscopy. with normal postoperative examination, recovering well. ASSESSMENT: 1. Appropriate postoperative exam PLAN: 1. Continue postoperative restrictions for a total of 6 weeks from the date of surgery. Treatment plan: Pelvic organ prolapse: s/p colpocleisis 09/17/2024 Occult stress urinary incontinence: s/p rMUS 09/17/2024 Overactive bladder / urgency urinary incontinence: not addressed today RTC for 6 week postoperative exam Candice Madrid MD 10/01/2024 documented in this encounter Plan of Treatment Upcoming Encounters Date Type Department Care Team (Late st Contact Info) Description 10/31/2024 11:30 AM EDT Office Visit Urogynecology [address] [id number] Candice Madrid MD [address] [place] [address] 12/27/2024 11:30 AM EDT Office Visit Internal Medicine - [facility] [address] [place] [address] Althea Michaels DO [address] [place] [address] documented as of this encounter Visit Diagnoses Diagnosis Postop check- Primary Follow-up examination, following unspecified surgery CHALO (stress urinary incontinence, female) 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
--- NOTE | 2024-10-02 10:00 | A.OFFVIS_ITS ---
Intake Visit Reasons: tests review Allergies alendronate sodium Allergy (Verified 10/01/24 16:03) Unknown lisinopril Allergy (Verified 10/01/24 16:03) Unknown meperidine (From Demerol) Allergy (Verified 10/01/24 16:03) Unknown naproxen Allergy (Verified 10/01/24 16:03) Unknown nifedipine (From Nifedical XL) Allergy (Verified 10/01/24 16:03) Unknown oxycodone Allergy (Verified 10/01/24 16:03) Unknown Medication List - Last Reconciled 10/02/24 by Bin Holcomb MD aspirin 81 mg PO DAILY atenolol 50 mg PO DAILY estradiol 0.01%(0.1mg/gram) 1 appful vaginal DIRECTED ferrous sulfate 325 mg PO Q3W hydrochlorothiazide 25 mg PO DAILY levothyroxine (Levoxyl) 75 mcg PO DAILY losartan 50 mg PO DAILY omeprazole 20 mg PO DAILY potassium chloride ER (Klor-Con) 10 mEq PO BID pravastatin 20 mg PO DAILY HPI Comments Details: She is here today for cognitive testing with MMSE and MoCA. MMSE 28/30. MoCA 20/30 with MIS 09/16. 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 She worked at a [employer] in [employer] [place] before [place] she was 20 years old with her sister and brother. 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 ?Had vaginal bladder suspension under Propofol. No major confusion. EEG was abnormal and showed recurrent multiple bilateral bursts of sharp waves. MRI brain showed global atrophy, small vessel disease with lacunar strokes, cavernoma of right cerebellum. Global cerebral atrophy. Small vessel occlusive disease. Cavernoma, right cerebellum. [facility] Medical History (Updated 10/02/24 @ 10:11 by Bin Holcomb MD) Hyperlipidemia GERD (gastroesophageal reflux disease) Hypertension Hypothyroidism Social History (Updated 10/01/24 @ 16:01 by Natalya Delacruz MA) Patient Tobacco Use Status: Never used Tobacco Physical Exam Neuro Other: Abnormal neurological findings:?Mild tremors medium amplitude of both hands R>L especially noted on writing , not at rest or with hands held extended. Slight side to side head tremor. MMSE 28/30. MoCA 20/30 with MIS 15.? Mental Status:?alert.? Cranial Nerves:?Pupils are equal, round and reactive to light. Fundoscopy shows normal disc bilaterally. External occular muscles are intact. Visual elizalde are full, no ptosis. Face is symmetrical, no facial weakness or droop. Facial sensations are normal. Tongue protrudes in midline. Palate elevates symmetrically. Shoulder shrugging is normal..? Motor Examination:?Normal muscle tone, bulk and strength,?No atrophy or fasciculations,?No drift of the extended upper extremities,?Deep tendon reflexes are 2+?,?Plantars are flexor?.? Straight Leg Raising:?90 degrees.? Sensory Exam:?Normal light touch, temperature, pinprick, vibration and joint- position sensations?,?Rhomberg sign is absent.? Coordination:?no ataxia,?no titubation,?hbjbgx-hv-cklf, qtik-yucx-vjto test and rapid alternating movements were normal.? Gait Exam:?Within normal limits.? Cerebellar Signs:?Blffhl-jz-tnmc and wbes-pw-wuof is normal,?no dysdiadochokinesia?.? Extrapyramidal System:?Tremor as above , No??rigidity with normal facial expressions,?No bradykinesia, no bradyphrenia. Normal arm swing and posture. No propulsion or retropulsion.? Speech:?Normal,?no dysphasia or dysarthria..? Assessment & Plan Assessment & Plan (1) MCI (mild cognitive impairment): Code(s): G31.84 - Mild cognitive impairment of uncertain or unknown etiology Category: Medical Plan: Start Donepezil 5mg a day for 2 weeks. If no side effects, then 1 tab daily with food (2) Benign essential tremor: Code(s): G25.0 - Essential tremor Category: Medical Plan Start Donepezil as directed F/u in 4 months Medications: New donepezil 10 mg PO DAILY 30 tabs 5RF Coding Level of Care Code Est Pt Level 4 (03073) Diagnoses MCI (mild cognitive impairment) G31.84 Benign essential tremor G25.0
--- OUTSIDE RECORDS SUMMARY | 2024-10-02 10:17 | XMS_ITS | Patient Health Record ---
Author Organization [facility] Address [address] [place] [address] Care Team Providers Care Associate Art Director Name Role Phone Gosia Butts MD Primary Care Provider Unavaila len Black Janine Unavailable [phone] Allergies Allergen (clinical drug ingredient) Drug/Non Drug Allergy documented on EMR Reaction Allergy Type Onset Date Status alendronate Alendronate Sodium May affect hip Drug Allergy Active meperidine Demerol Unknown Drug Allergy Active Lisinopril Unknown Drug Allergy Active naproxen Naprosyn nausea Drug Allergy Active Nifedical [...] 50 MG 1 tablet Orally Once a day; Duration: 30 day(s) Active Estradiol 0.1 MG/GM as directed Vaginal Active Omeprazole 20 MG 1 capsule Orally Onc e a day; Duration: 30 day(s) Active Alendronate Sodium 70 MG 1 tablet Orally ; Duration: 30 day(s) Unknown Calcium 600-200 MG-UNIT as directed Orally Active Amoxicillin Active Centrum Silver - as directed Orally Active hydroCHLOROthiazide 25 MG 1 tablet in th e morning Orally Once a day; Duration: 30 day(s) Active Klor-Con 10 10 MEQ 1 tablet with food Orally Twice a day; Duration: 30 day(s) Active Losartan Potassium 50 MG 1 tablet Orally Once a day; Duration: 30 day(s) Active Pravastatin Sodium 40 MG 1 tablet Orally Once a day; Duration: 30 day(s) Active Iron Complex - as directed Orally Active Levothyroxine Sodium 75 MCG 1 tablet on an empty stomach in the morning Orally Once a day; Duration: 30 day(s) Active Aspirin 81 MG 1 tablet Orally Once a day; Duration: 30 day(s) Active Social History Tobacco Use: [...] Problem Acquired hammer toe of left foot (6622925357247 103) Other hammer toe(s) (acquired), left foot (M20.42) Active confirmed Problem Hammer toe of right foot (M20.41) Active confirmed Problem Javed's neuroma of right foot (2871582540120 08) 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 [address] 02/01/2024 Janine Black Pain in right foot M79.671 ; Javed's neuroma of right foot G57.61 ; Neuralgia and neuritis, unspecified M79.2 and Hammer toe of right foot M20.[address] [facility] [address] 11/03/[address] Janine [address] [facility] [address] 11/25/2023 Janine Barrett Assessments Encounter Date Diagnosis (ICD Code) Assessment Notes Treatment Notes Treatment Clinical Notes Section Notes 02/01/2024 Pain in right foot (ICD-10 - M79.671) 02/01/2024 Javed's neuroma of right foot (ICD-10 - G57.61) 02/01/2024 Neuralgia and neuritis, unspecified (ICD-10 - M79.2) 02/01/2024 Hammer toe of right foot (ICD-10 - M20.41) Plan Of Treatment Pending Test Test Name Order Date [id number] Plate 04/20/2018 [id number] [id number] <25 sq cm 05/09/2018 Insurance Providers Payer Name Payer Address Payer Phone Subscriber Number Group Number Insured Name Patient Relationship to Insured Coverage Start Date Coverage End Date Medicare National Govt [employer] [address] [place] [phone] [id number] Donna Figueroa Self - patient is the insured [employer] [address] [place] [address] [phone] [id number] Donna Figueroa Self - patient is [...]
== END 2024-10-02 10:25 | disposition home or self-care (01) ==
LOC: HO.HSM 09:33
PROVIDERS: PCP Internal Medicine; Visit Provider Psychiatry & Neurology Neurology
DX: G31.84 Mild cognitive impairment of uncertain or unknown etiology (principal); G25.0 Essential tremor
CPT/HCPCS: 99214

== ENCOUNTER → 2024-10-02 09:33 | Outpatient (BNVA) | payer MEDICARE, SELFPAY | PROVIDERS: PCP Internal Medicine; Visit Provider Psychiatry & Neurology Neurology | DX: G31.84 Mild cognitive impairment of uncertain or unknown etiology (principal); G25.0 Essential tremor | CPT/HCPCS: 99212 ==

== ENCOUNTER 2025-02-13 13:03 | Outpatient (AMB) | payer MEDICARE, SELFPAY ==
--- NOTE | 2025-02-13 13:08 | MHC.OFFVIS ---
Intake Visit Reasons: f/u of MCI, and BETS Allergies alendronate sodium Allergy (Verified 10/01/24 16:03) Unknown lisinopril Allergy (Verified 10/01/24 16:03) Unknown meperidine (From Demerol) Allergy (Verified 10/01/24 16:03) Unknown naproxen Allergy (Verified 10/01/24 16:03) Unknown nifedipine (From Nifedical XL) Allergy (Verified 10/01/24 16:03) Unknown oxycodone Allergy (Verified 10/01/24 16:03) Unknown Medication List - Last Reconciled 02/13/25 by Bin Holcomb MD aspirin 81 mg PO DAILY atenolol 50 mg PO DAILY estradiol 0.01%(0.1mg/gram) 1 appful vaginal DIRECTED ferrous sulfate 325 mg PO Q3W hydrochlorothiazide 25 mg PO DAILY levothyroxine (Levoxyl) 75 mcg PO DAILY losartan 50 mg PO DAILY omeprazole 20 mg PO DAILY potassium chloride ER (Klor-Con) 10 mEq PO BID pravastatin 20 mg PO DAILY HPI Comments Details: She has some difficulties recalling names and may repeat herself at times. At times her memory is very sharp. Not sleeping as well and waking around 4 am. Does not usually garcía snot nap. Is involved in a lot of activities. She is here today for cognitive testing with MMSE and MoCA. MMSE 28/30. MoCA 20/30 with MIS 15. 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 She worked at a [employer] in [place] before coming to the [facility]?when she was 20 years old with her sister and brother. 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 ?Had vaginal bladder suspension under Propofol. No major confusion. EEG was abnormal and showed recurrent multiple bilateral bursts of sharp waves. MRI brain showed global atrophy, small vessel disease with lacunar strokes, cavernoma of right cerebellum. [facility] Medical History (Updated 02/13/25 @ 13:21 by Bin Holcomb MD) Hyperlipidemia GERD (gastroesophageal reflux disease) Hypertension Hypothyroidism Social History (Updated 10/01/24 @ 16:01 by Natalya Delacruz MA) Patient Tobacco Use Status: Never used Tobacco Review of Systems Neuro Reports memory loss and Reports tremor(s) Psych Reports memory loss Physical Exam Neuro Other: Mini Mental Status Exam:Level of Consciousness:??Alert.?Orientation:??Knows correct year, month, day and season,?Knows correct city, county and state. Knows correct location and floor.?Registration:??Able to register 3 objects.?Attention:??Serial 7's performed accurately to 72.?Recall:??Able to recall?2 out of 3 objects.?Language:??Normal spontaneous speech, fluency, repetition,naming, comprehension, reading and writing.?Total Score:??28/30.? Abnormal neurological findings:?Mild tremors medium amplitude of both hands R>L especially noted on writing , not at rest or with hands held extended. Slight side to side head tremor. MMSE 28/30. MoCA 20/30 with MIS 09/16.? Mental Status:?alert.? Cranial Nerves:?Pupils are equal, round and reactive to light. Fundoscopy shows normal disc bilaterally. External occular muscles are intact. Visual elizalde are full, no ptosis. Face is symmetrical, no facial weakness or droop. Facial sensations are normal. Tongue protrudes in midline. Palate elevates symmetrically. Shoulder shrugging is normal..? Motor Examination:?Normal muscle tone, bulk and strength,?No atrophy or fasciculations,?No drift of the extended upper extremities,?Deep tendon reflexes are 2+?,?Plantars are flexor?.? Straight Leg Raising:?90 degrees.? Sensory Exam:?Normal light touch, temperature, pinprick, vibration and joint-position sensations?,?Rhomberg sign is absent.? Coordination:?no ataxia,?no titubation,?[id number], bpwd-[id number]-mokz test and rapid alternating movements were normal.? Gait Exam:?Within normal limits.? Cerebellar Signs:?Cpgweh-wn-xiga and caze-uz-dses is normal,?no dysdiadochokinesia?.? Extrapyramidal System:?Tremor as above , No??rigidity with normal facial expressions,?No bradykinesia, no bradyphrenia. Normal arm swing and posture. No propulsion or retropulsion.? Speech:?Normal,?no dysphasia or dysarthria..? Assessment & Plan Assessment & Plan (1) MCI (mild cognitive impairment): Comment: stable Code(s): G31.84 - Mild cognitive impairment of uncertain or unknown etiology Category: Medical Plan: Start Donepezil 5mg a day for 2 weeks. If no side effects, then 1 tab daily with food (2) Benign essential tremor: Comment: stable Code(s): G25.0 - Essential tremor Category: Medical Plan Donepezil produced dizziness and cramps. Stay off meds Coding Level of Care Code Est Pt Level 4 (23778) Diagnoses MCI (mild cognitive impairment) G31.84 Benign essential tremor G25.0
--- OUTSIDE RECORDS SUMMARY | 2025-02-13 15:48 | XMS_ITS | Clinical Summary ---
Author Organization [place] [id number] [address] Formerly [facility], [address] [facility] [place] [address] Phone Care Team Providers Care Oven Builder Name Role Phone Althea Michaels DO Primary Care Provider [phone] Allergies Active Allergy Reactions Criticality Noted Date Comments Alendronate 02/09/2024 Muscle weakness Pt does not recall reaction Hydromorphone 02/20/2024 Lisinopril 02/20/2024 Meperidine Hallucinations 05/07/2005 Naproxen Other 04/09/2014 Nausea,upset stomach Nifedipine 05/07/2005 bilateral feet and ankle swelling Oxycodone 02/20/2024 Pt does not recall reaction Tramadol 02/20/2024 Medications calcium citrate-vitamin D3 250 mg-5 mcg (200 unit) tablet one tablet twice daily Active aspirin 81 mg EC tablet Take by mouth 1 (one) time each day. Active ferrous sulfate (IRON ORAL) IRON 65 MG OR TABS- 2 tablets daily Active multivit-min/folic acid/lutein (CENTRUM SILVER ORAL) one tablet daily Active cranberry omlreox-g-kjbvbse 157.5-500 mg capsule Take 500 mg by mouth 2 (two) times a day. 40 capsule 1 08/17/19 25 Active estradioL (ESTRACE) 0.01 % (0.1 mg/gram) vaginal cream Apply dime size amount to vagina digitally nightly for 2 weeks, then 3 times per week. 127.5 g 3 08/17/19 25 Active omeprazole (PriLOSEC) [address] capsule TAKE 1 CAPSULE BY MOUTH EVERY DAY 90 capsule 1 09/11/19 25 Active hydroCHLOROthiazid e (HYDRODIURIL) 25 mg tablet TAKE 1 TABLET BY MOUTH 1 TIME EACH DAY. 90 tablet 1 09/18/19 25 Active potassium chloride (KLOR-CON) 10 mEq CR tablet TAKE 1 TABLET BY MOUTH TWICE A DAY 180 tablet 1 10/09/19 25 Active amoxicillin (AMOXIL) 500 mg capsule Take 1 capsule (500 mg total) by mouth. Take 4 tabs 1 hour prior to dental procedure Active pravastatin (PRAVACHOL) 20 mg tabletIndications: Mixed hyperlipidemia TAKE 1 TABLET BY MOUTH EVERY DAY 90 tablet 1 01/01/20 25 Active losartan (COZAAR) 50 mg tablet TAKE 1 TABLET BY MOUTH EVERY DAY 90 tablet 3 01/04/20 25 Active atenoloL (TENORMIN) 50 mg tabletIndications: Primary hypertension Take 1 tablet (50 mg total) by mouth 1 (one) time each day. 90 tablet 1 01/08/20 25 Active levothyroxine (SYNTHROID, LEVOTHROID) 75 mcg tablet Take 1 tablet (75 mcg total) by mouth 1 (one) time each day before breakfast. TAKE 1 TABLET BY MOUTH DAILY. TAKE EXTRA TAB ONCE A WEEK 96 tablet 1 01/22/20 25 Active levothyroxine (SYNTHROID, LEVOTHROID) 75 mcg tablet TAKE 1 TABLET BY MOUTH DAILY. TAKE EXTRA TAB ONCE A WEEK 96 tablet 1 07/12/19 25 025 Discontin ued(Reord er) Active Problems Problem Noted Date Diagnosed Date Osteopenia 02/09/2024 Sacroiliitis ([facility] V24) 08/21/2018 Irritant dermatitis 12/08/2017 Overview (02/09/2024): Last Assessment & Plan: I reviewed findings with Josie. Likely irritation from soap and from discharge. Recommended soak and seal with coconut oil or Vaseline. She will do so. Encouraged to follow C guidelines. Given a copy. Vaginal atrophy 12/08/2017 Vaginal vault prolapse after hysterectomy 2017 Overview (02/09/2024): Last Assessment & Plan: Not bothersome and thus no intervention necessary. Vulvar atrophy 12/08/2017 Overview (02/17/2024): Last Assessment & Plan: Continue Estrace MWF and return for exam in 1-2 years Coronary artery calcification seen on CAT scan 0 05/04/2016 Overview (02/09/2024): - Incidentally noted on CT of the chest as coronary artery calcifications - Has never had anginal symptoms so we are managing medically with statin and aspirin Last Assessment & Plan: I did offer to increase her pravastatin back up to 40 but I suspect we reduced it or someone reduced it because of side effects. In light of advanced age, I would favor lifestyle and life limitations over 10-year risk reduction. Therefore, we will continue lower dose of pravastatin 20 mg along with baby aspirin for primary prevention in the setting of subclinical coronary artery disease. Also continue current antihypertensives. Assessment & Plan (12/25/2024 9:33 AM EDT): Continue with the baby aspirin and the pravastatin for primary prevention in the setting of subclinical coronary artery disease. Also continue with the antihypertensive medications. Patient reports no new or worsening anginal symptoms and is quite active during the day. Assessment & Plan (08/22/2024 10:32 AM EDT): I did offer to increase her pravastatin back up to 40 but I suspect we reduced it or someone reduced it because of side effects. In light of advanced age, I would favor lifestyle and life limitations over 10-year risk reduction. Therefore, we will continue lower dose of pravastatin 20 mg along with baby aspirin for primary prevention in the setting of subclinical coronary artery disease. Also continue current antihypertensives. Orders: ECG 12 lead Osteoporosis 03/13/2016 Overview (02/17/2024): Bone Density 03/19 Rectocele, female 02/27/2016 Basal cell carcinoma 07/15/2015 Overview (02/09/2024): BCC 07/18 left hoahaoism (nodualr & superficial) Thoracic aortic aneurysm (CMS/[facility] V24) 5 Overview (02/09/2024): -Incidental finding noted on chest x-ray performed for right upper quadrant pain in December 2013 -Has been quite stable -Most recent CT scan on 08/14/2020 showed slight growth of the ascending aorta from 2019 from 3.9 to 4.1 cm, slight growth of the proximal arch from 3.5 to 3.6 cm, unchanged distal arch, focal bulging of the arch visualized distally from the origin of the left subclavian measuring 3.5 cm-stable -Most recent echocardiogram performed from 01/12/2022 showed normal left ventricular chamber size, upper normal ventricular wall thickness, no WMA, LVEF is 55 to 60%, right ventricle is normal in size and function, no significant valve disease is noted, mildly dilated aorta at 3.8 cm. Last Assessment & Plan: No further surveillance imaging given that it will not change consultant. We had a thorough discussion about this during my visit with her in 2022. Assessment & Plan (12/25/2024 9:32 AM EDT): No further surveillance imaging given that it will not change consultant. We had a thorough discussion about this during a visit in 2022. Assessment & Plan (08/22/2024 10:32 AM EDT): No further surveillance imaging given that it will not change consultant Osteoarthritis of right knee 02/11/2014 Hyperlipidemia 01/22/2013 Overview (02/09/2024): Last Assessment & Plan: Continue 40 mg at bedtime of pravastatin Assessment & Plan (12/25/2024 9:34 AM EDT): Lipid panel from 1 year prior revealed LDL of 99 and triglycerides of 173. Should increase her consumption of omega-3 fatty acids. Will update a lipid panel. Assessment & Plan (08/22/2024 10:32 AM EDT): See above, continue on the pravastatin 20 mg p.o. daily. Cholelithiasis 07/25/2012 Overview (02/09/2024): CT Fl, 04/11/12 Colitis 07/25/2012 Overview (02/09/2024): CT, Fl 04/11/12: thick Splenic flexure & descending colon Hypothyroidism 04/21/2006 Overview (02/09/2024): Hx/of thyroiditis years ago Hypertension 05/07/2005 Overview (02/09/2024): Last Assessment & Plan: Suboptimally controlled here but well-controlled at home, continue current regimen of hydrochlorothiazide, losartan, atenolol. Assessment & Plan (12/25/2024 9:33 AM EDT): Well-controlled at home. Utilizing atenolol, hydrochlorothiazide, and losartan. Please continue to do the same. Educated on the importance of diet lifestyle to help further assist in reducing blood pressure. The patient was encouraged to follow low-salt low-fat diet, make purposeful strides towards weight loss, and engage in routine aerobic exercise as tolerated. Assessment & Plan (08/22/2024 10:32 AM EDT): Can continue on the losartan 50 mg p.o. daily, hydrochlorothiazide 25 mg p.o. daily, atenolol 50 mg p.o. daily. In the future, especially if the patient is complaining of dizziness, would opt to switch patient off of the atenolol. Encounters Date Type Department Care Team Description 01/09/2025 Telephone Urogynecology - [address] [phone] Candice Madrid MD 01/07/2025 1:30 PM EDT Office Visit Internal Medicine - [address] [phone] Emily Olea NP Primary hypertension (Primary Dx); Thoracic aortic aneurysm without rupture, unspecified part (CMS/HCC V24); Coronary artery calcification seen on CAT scan; Mixed hyperlipidemia; Hypokalemia; Hypothyroidism, unspecified type; Gastroesophageal reflux disease, unspecified whether esophagitis present 01/03/2025 Results Follow-Up [facility] Cardiology [facility] [address] [facility] [address] [place] [phone] Brian Sy NP 12/25/2024 9:10 AM EDT Office Visit [facility] Cardiology [facility] [address] [facility] [address] [place] [phone] Brian Sy NP Mixed hyperlipidemia (Primary Dx); Thoracic aortic aneurysm without rupture, unspecified part (CMS/[facility] V24); Hypertension, unspecified type; Coronary artery calcification seen on CAT scan from Last 3 Months Immunizations Immunization Administration Dates Next Due H1N1 Inj Preservative Free 05/06/2009 Influenza Quadravalent, 0.5m l (Fluad) 65yo and older 01/17/2023 Influenza Quadravalent, 0.5m l (Fluzone High-dose) 65yo and older 01/11/2022,01/25/2019,12/16/2017,12/08 Influenza trivalent, 0.5mL ( Fluad) 65yo and older 12/18/2024,12/22/2023,01/22/2019,12/11,12/26/2014 Influenza trivalent, 0.5mL, preservative free (Fluarix; FluLaval; Fluzone) ages 6mo and older (Afluria) 3 years and older 11/27/2019,02/04/2016,01/09/2014,01/22,01/24/2012,01/07/2011,02/05/2010 ,12/23/2008,01/30/2008,02/10/2007,03/05,01/27/2005 Moderna Covid-19 Bivalent, O riginal + Ba.1 (Non-US Tradename Spikevax Bivalent) 12/27/2024 Tiempo Listo SARS-CoV-2 COVID-19, mRNA, LNP-S, preservative free 01/11/2023,01/14/2022,07/28/2021,05/08,04/17/2020 Pneumococcal conjugate 13 va lent (Prevnar 13, PCV13) 2mo and older 04/18/2015 Pneumococcal polysaccharide 23 valent (Pneumovax 23) 2yo and older 07/02/2002 RSV, bivalent, protein subun it RSVpreF, 0.5mL, Preservative Free (Arexvy) 50yo and older 03/01/2023 Td Tetanus diptheria (Tdvax) 7yo and older 02/10/2007 Tdap Tetanus diptheria acell ular pertussis (Boostrix; Adacel) 7yo and older 12/27/2024,07/25/2012 Zoster Live 08/03/2011 Zoster recombinant (Shingrix ) 19yo and older 03/21/2019,12/21/2018 Surgical History Surgery Date Site/Laterality Comments OTHER SURGICAL HISTORY 04/04/2007 PROCEDURE: MAMMOGRAM; COMMENT: neg OTHER SURGICAL HISTORY 09/03/2003 PROCEDURE: PAP SMEAR (1 SLIDE); COMMENT: Arthur; neg OTHER SURGICAL HISTORY PROCEDURE: FL REPAIR PATENT DUCTUS ARTERIOSUS LIGATION; COMMENT: age 21 BLADDER SUSPENSION PROCEDURE: HISTORICAL BLADDER SUSPENSION; COMMENT: age 34 OTHER SURGICAL HISTORY 03/04/2004 PROCEDURE: NUCLEAR STRESS TEST; COMMENT: neg HYSTERECTOMY 04/04/1971 - 04/03/1972 PROCEDURE: HISTORICAL TOTAL HYSTERECTOMY WITH BSO; COMMENT: ovaries removed at separate procedure age 34 SALPINGOOPHORECTOMY 02/03/2012 PROCEDURE: FL LAPAROSCOPY W/RMVL ADNEXAL STRUCTURES; COMMENT: BSO for cyst (serous cystadenoma) BREAST BIOPSY 04/04/1999 Left PROCEDURE: BX BREAST; PERC NEEDLE CORE W/IMAG GUID; COMMENT: neg COLONOSCOPY 09/02/2002 PROCEDURE: FL COLONOSCOPY STOMA DX INCLUDING COLLJ SPEC SPX; COMMENT: Bertha; sidra COLONOSCOPY 12/27/2008 PROCEDURE: FL COLONOSCOPY STOMA DX INCLUDING COLLJ SPEC SPX; COMMENT: normal; repeat in five years (optional) OTHER SURGICAL HISTORY PROCEDURE: HISTORICAL MELANOMA KNEE SURGERY Bilateral bilateral knee replacements CATARACT EXTRACTION Bilateral 2015 Medical History Medical History Date Comments Other and unspecified hyperlipidemia 08/25/2005 DX:Other and unspecified hyperlipidemia Unspecified hypothyroidism 04/21/2006 DX:Un specified hypothyroidism; COMMENT: Hx/of thyroiditis years ago Essential hypertension, benign 05/07/2005 D X:Essential hypertension, benign Basal cell carcinoma of skin 09/01/2010 DX: Basal cell carcinoma of skin Hyperlipidemia 01/22/2013 DX:Hyperlipidemi a History of basal cell carcinoma 09/01/2010 DX:History of basal cell carcinoma; COMMENT: BCC 09/14 forehead; left side (metatypical) & right eyebrow (infiltrative) 11/12 right anterior tibia (superficial) 08/12 back (nodular) Actinic keratosis, hx of DX:Acti criselda keratosis, hx of Shoulder impingement syndrome, left DX:Shoulder impingement syndrome, left; COMMENT: Dr. Gauthier, [facility]. Osteopenia DX:Osteopenia; C OMMENT: Tscore -2.1 Adverse effect of anesthesia GERD (gastroesophageal reflu x disease) Angina pectoris (CMS/HCC V24) Cataracts, bilateral Thoracic aortic aneurysm (CM S/HCC V24) Family History Medical History Relation Name Comments Colon cancer Brother x6 2 ; 2 Other: Other Brother x6 2 renal Prostate cancer Brother x6 2 No Known Problems Daughter x3 Other cancer Father Liver; Stroke Mother 73; Alzheimer's disease Sister x5 2 Crohn's disease Sister x5 2 Heart attack Sister x5 2 Other: Other Sister x5 2 cancer unknown type No Known Problems Son Breast cancer Neg Hx Relation Name Status Comments Brother x6 2 Daughter x3 Alive Father Mother Sister x5 2 Son Alive Social History Tobacco Use Types Packs/Day Years Used Date Smoking Tobacco: Never Smokeless Tobacco: Never Tobacco Cessation:Counseling Given: Not Answered Alcohol Use Standard Drinks/Week Comments Yes 0 [...] care for your loved ones. For example, child development director or elderly care for an older adult? [...] Date Recorded What is your living situation? Unrecognized valu e 10/01/2024 Interpersonal Safety Answer Date Record ed Physical Abuse Unrecognized value 09/17/2024 Verbal Abuse Unrecognized value 09/17/2024 Comments No Sex and Gender Information Value Date Recorded Sex Assigned at Not on file Legal Sex Female 9:55 AM EST Gender Identity Not on file Sexual Orientation Not on file Obstetrics History Para Term AB IAB SAB Ectopic Multiple Livin g Live Births 4 4 4 4 Date Outcome GA Total Labor Labor/2nd/3rd Weight Sex Type Anes PTL Leigh A1 A5 Name Clin Term Term Term Term Last Filed Vital Signs Vital Sign Reading Time Taken Comments Blood Pressure 130/62 01/07/2025 1:30 PM EDT Pulse 60 01/07/2025 1:47 PM EDT Temperature 36.2 C (97.2 F) 09/17/2024 3:56 PM EDT Respiratory Rate 18 09/17/2024 3:56 PM EDT Oxygen Saturation 97% 12/25/2024 9:00 AM EDT Inhaled Oxygen Concentration - - Weight 69.9 kg (154 lb 3.2 oz) 01/07/2025 1:30 P M EDT Height 160 cm (5' 3 ) 12/25/2024 9:00 AM EDT Body Mass Index 27.32 12/25/2024 9:00 AM EDT Plan of Treatment Upcoming Encounters Date Type Department Care Team (Late st Contact Info) Description 05/14/2025 8:45 AM EST Office Visit Internal Medicine - [address] [phone] Emily Olea NP [address] [place] [id number] Health Maintenance Due Date Last Done Comments COVID-19 Vaccine (8 - Pfizer risk season) 2025 12/27/2024, 01/06/2024, 01/11/2023, Additional history exists Hypertension/CHF/CAD Annual BMP Blood Test 08/23/2025 08/23/2024, 06/21/2024, 07/15/2023 Falls Risk Assessment 10/01/2025 10/01/2024, 025 Medicare Annual Wellness Visit 10/01/2025 10/01/2024 Social Influencers of Health Screening 10/01/2025 10/01/2024 Cholesterol Screening (Lipid Panel) 12/28/2029 12/28/2024, 07/15/2023 Osteoporosis Screening (Bone Density Screening) 09/28/2033 09/29/2023, 09/29/2023, 04/05/2018 DTaP,Tdap,and Td Vaccines (4 - Td or Tdap) 12/27/2034 12/27/2024, 07/25/2012, 02/10/2007 Pneumococcal Vaccine: 50+ Years Completed 04/18/2015, 07/02/2002 Zoster Vaccines Completed 03/21/2019, 12/03, 08/03/2011 RSV Immunization Adult Patients Completed 03/01/2023 Influenza Vaccine Completed 12/18/2024, , 01/17/2023, Additional history exists Depression Screening Completed 12/25/2024, 07/12/19 24 HIB Vaccines Aged Out No longer eligi ble based on patient's age to complete this topic HPV Vaccines Aged Out No longer eligi ble based on patient's age to complete this topic Hepatitis A Vaccines Aged Out No long er eligible based on patient's age to complete this topic Hepatitis B Vaccines Aged Out No long er eligible based on patient's age to complete this topic IPV Vaccines Aged Out No longer eligi ble based on patient's age to complete this topic MMR Vaccines Aged Out No longer eligi ble based on patient's age to complete this topic Meningococcal ACWY Vaccine Aged Out N o longer eligible based on patient's age to complete this topic Meningococcal B Vaccine Aged Out No l onger eligible based on patient's age to complete this topic RSV Immunization Patients Under 20 months Aged Out No longer eligible based on patient's age to complete this topic Varicella Vaccines Aged Out No longer eligible based on patient's age to complete this topic Medical Devices Implanted Type Area Squirrel Worker Device Identifier Shelf Expiration Date Model / Serial / Lot Joints Knee Joints Knee Bilateral : Knee Opthalmology Implants Opthalmology Implants Bilateral : Eye Sling Transvaginal Advantage Fit Blue - Sna - [id number] Implanted:Qty: 1 on 09/17/2024 by Candice Madrid MD at [facility] Surgical Mesh Sling Implants N/A: Urethra [employer]GYN[employer]O LGY [id number] 07/23/2027 [id number] / NA / [id number] Procedures Procedure Name Priority Date/Time Associated Diagnosis Comments LIPID PANEL WITH REFLEX TO DIRECT LDL Routine 12/28/2024 8:45 AM EDT Mixed hyperlipidemia EXTERNAL AUDIOLOGY REPORT 11/22/2024 BASIC METABOLIC PANEL Routine 08/23/2024 10:40 AM EDT Hypertension, unspecified type DXA BONE DENSITY STUDY 1+ SITS AXIAL SKEL Routine 09/29/2023 1:02 PM EDT Age-related osteoporosis without current pathological fracture HM DEPRESSION SCREENING Routine 07/12/2023 from Last 3 Months or Most Recently Relevant to Health Maintenance Results * Lipid panel with reflex to direct LDL (12/28/2024 8:45 AM EDT) Cholesterol 174 0 - 200 mg/dL LAB CHEMISTRY METHOD 12/28/2024 12:07 PM EDT [facility] Triglycerides 144 0 - 150 mg/dL LAB CHEMISTRY METHOD 12/28/2024 12:07 PM EDT [facility] HDL 53 >=40 mg/dL LAB CHEMISTRY METHOD 12/28/2024 12:07 PM EDT [facility] LDL Calculated 92 0 - 100 mg/dL LAB CHEMISTRY METHOD 12/28/2024 12:07 PM EDT [facility] Comment:Estimated LDL Calcul ated using equation: Total cholesterol - HDL cholesterol - (Triglycerides/5) VLDL Cholesterol Guerrero 28.8 mg/dL LAB CHEMISTRY METHOD 12/28/2024 12:07 PM EDT [facility] Non HDL Chol. (LDL+VLDL) 121 <145 mg/dL LAB CHEMISTRY METHOD 12/28/2024 12:07 PM EDT [facility] Chol/HDL Ratio 3.3 0.0 - 4.4 LAB CHEMISTRY METHOD 12/28/2024 12:07 PM EDT [facility] Blood Venous blood specimen / Unknown Venipuncture / Unknown 12/28/2024 8:45 AM EDT 12/28/2024 10:23 AM EDT us Brian Sy NP LAB BLOOD ORDERABLES Final Resul t [facility] [address] [place] [address], [place] [phone] * External Audiology Report (11/22/2024) us Provider [facility] ORDER CANELO Final Result * Basic metabolic panel (08/23/2024 10:40 AM EDT) Sodium 142 133 - 145 mmol/L LAB CHEMISTRY METHOD 08/23/2024 4:05 PM [facility] Potassium 3.8 3.5 - 5.5 mmol/L LAB CHEMISTRY METHOD 08/23/2024 4:05 PM [facility] Chloride 108 96 - 110 mmol/L LAB CHEMISTRY METHOD 08/23/2024 4:05 PM [facility] CO2 29 21 - 32 mmol/L LAB CHEMISTRY METHOD 08/23/2024 4:05 PM [facility] Anion Gap 5 3 - 11 LAB CHEMISTRY METHOD 08/23/2024 4:05 PM [facility] Glucose 92 70 - 100 mg/dL LAB CHEMISTRY METHOD 08/23/2024 4:05 PM [facility] BUN 19 5 - 25 mg/dL LAB CHEMISTRY METHOD 08/23/2024 4:05 PM [facility] Creatinine 0.67 0.50 - 1.10 mg/dL LAB CHEMISTRY METHOD 08/23/2024 4:05 PM [facility] eGFR 84 >=60 mL/min/1. 73m2 LAB CHEMISTRY METHOD 08/23/2024 4:05 PM [facility] Comment:Calculation based on the Chronic Kidney Disease Epidemiology Collaboration (CKD-EPI) equation refit without adjustment for race. BUN/Creatinine Ratio 28.4 LAB CHEMISTRY METHOD 08/23/2024 4:05 PM [facility] Calcium 9.3 8.5 - 10.5 mg/dL LAB CHEMISTRY METHOD 08/23/2024 4:05 PM [facility] Blood Venous blood specimen / Unknown Venipuncture / Unknown 08/23/2024 10:40 AM EDT 08/23/2024 10:40 AM EDT us Althea Xenia CHAN LAB BLOOD ORDERABLES Final Res ult [facility] [address] [place] [address], * DXA BONE DENSITY STUDY 1+ SITS AXIAL SKEL (09/29/2023 1:02 PM EDT) Anatomical Region Laterality Modality Bone Densitometr y 09/06/2023 9:47 AM EDT Narrative 09/30/2023 9:54 AM EDT BONE DENSITY Lumbar Spine T-score is -2.5 (SD relative to 20-29 y/o adult) Z-score is -0.4 (SD relative to age matched peers) This is consistent with osteoporosis by criteria defined by the WHO. Left Hip T-score is -2.6 Z-score is -0.3 This is consistent with osteoporosis by criteria defined by the WHO. Comparison exam(s): significant decrease in bone density of hip and lumbar spine when compared to most recent bone density examination Confidence level is +/-95%. Impression: Based on the World Health Organization criteria, Josie Duran should be classified as having osteoporosis. The [facility] Department of Internal Medicine recommends using National Osteoporosis Foundation (NOF) guidelines in treatment decisions related to osteoporosis. NOF guidelines suggest considering treatment for postmenopausal women and men aged 50 or older presenting with the following: History of hip or vertebral fracture. T-score less than or equal to -2.5 (DXA) at the femoral neck, total hip, or spine, after appropriate evaluation to exclude secondary causes. Low bone mass (T-score between -1.0 and -2.5 at the femoral neck or spine) AND a 10-year probability of a hip fracture greater than or equal to 3% OR a 10-year probability of a major osteoporosis-related fracture greater than or equal to 20% based on the [place]-adapted WHO algorithm Please note that all treatment decisions require clinical judgment and consideration of individual patient factors, including patient preferences, co-morbidities, previous drug use, risk factors not captured in the FRAX model (e.g., frailty, falls, vitamin D deficiency, increased bone turnover, interval significant decline in bone density) and possible under- or over-estimation of fracture risk by FRAX. Procedure Note Erin Heath MD - 01/18/2024 BONE DENSITY Lumbar Spine T-score is -2.5 (SD relative to 20-29 y/o adult) Z-score is -0.4 (SD relative to age matched peers) This is consistent with osteoporosis by criteria defined by the WHO. Left Hip T-score is -2.6 Z-score is -0.3 This is consistent with osteoporosis by criteria defined by the WHO. Comparison exam(s): significant decrease in bone density of hip andlumbar spine when compared to most recent bone density examination Confidence level is +/-95%. Impression: Based on the World Health Organization criteria, Josie Salcido be classified as having osteoporosis. The [facility] Department of Internal Medicine recommendsusing National Osteoporosis Foundation (NOF) guidelines in treatmentdecisions related to osteoporosis. NOF guidelines suggest consideringtreatment for postmenopausal women and men aged 50 or older presentingwith the following: History of hip or vertebral fracture. T-score less than or equal to -2.5 (DXA) at the femoral neck, total hip,or spine, after appropriate evaluation to exclude secondary causes. Low bone mass (T-score between -1.0 and -2.5 at the femoral neck or spine)AND a 10-year probability of a hip fracture greater than or equal to 3% ORa 10-year probability of a major osteoporosis-related fracture greaterthan or equal to 20% based on the [place]-adapted WHO algorithm Please note that all treatment decisions require clinical judgment andconsideration of individual patient factors, including patientpreferences, co-morbidities, previous drug use, risk factors not capturedin the FRAX model (e.g., frailty, falls, vitamin D deficiency, increasedbone turnover, interval significant decline in bone density) and possibleunder- or over-estimation of fracture risk by FRAX. Emily Olea NP IMG DXA PROCEDURES Final Result * Depression Screening (07/12/2023) [facility] Depression Screening abstracted Historical Provider HEALTH MAINTENANCE Final Result from Last 3 Months or Most Recently Relevant to Health Maintenance Insurance MEDICARE [facility] Advance Directives Documents on File Type Date Recorded Patient Basketball Scout Expl anation Health Care Decision (hx) 01/14/2015 AD OROZCO DIRECTIVE Health Care Decision (hx) 01/14/2015 AD OROZCO DIRECTIVE Health Care Decision (hx) 01/14/2015 AD OROZCO DIRECTIVE Health Care Decision (hx) 01/14/2015 AD OROZCO DIRECTIVE Health Care Decision (hx) 01/14/2015 AD OROZCO DIRECTIVE Health Care Decision (hx) 01/14/2015 AD OROZCO DIRECTIVE Health Care Decision (hx) 01/12/2015 AD OROZCO DIRECTIVE Health Care Decision (hx) 01/12/2015 AD OROZCO DIRECTIVE Health Care Decision (hx) 01/12/2015 AD OROZCO DIRECTIVE Health Care Decision (hx) 01/12/2015 AD OROZCO DIRECTIVE Health Care Decision (hx) 01/12/2015 AD OROZCO DIRECTIVE Health Care Decision (hx) 01/12/2015 AD OROZCO DIRECTIVE Health Care Decision (hx) 01/07/2015 AD OROZCO DIRECTIVE Health Care Decision (hx) 01/07/2015 AD OROZCO DIRECTIVE Health Care Decision (hx) 01/07/2015 AD OROZCO DIRECTIVE Health Care Decision (hx) 01/07/2015 AD OROZCO DIRECTIVE Health Care Decision (hx) 01/07/2015 AD OROZCO DIRECTIVE Health Care Decision (hx) 01/07/2015 AD OROZCO DIRECTIVE * Full Code - Default (Latest Code Status on File) Date Activated Date Inactivated Comments 09/17/2024 10:26 AM 09/17/2024 7:51 PM This is ord er is used when code status has not been discussed with the patient, or code status is otherwise unknown/unconfirmed To update the patient's code status, place a code status order. Do not modify or discontinue any currently active code status orders. Care Teams Oven Builder Relationship Specialty Start Date End Date Althea Michaels DO [address] [place] [id number] PCP - General 11/29/22
--- OUTSIDE RECORDS SUMMARY | 2025-02-13 15:48 | XMS_ITS | Patient Health Record ---
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 Role Phone Gosia Butts MD Primary Care Provider Unavaila len Barrett Janine Unavailable [phone] Allergies Allergen (clinical drug ingredient) Drug/Non Drug Allergy documented on EMR Reaction Allergy Type Onset Date Status alendronate Alendronate Sodium May affect hip Drug Allergy Active meperidine Demerol Unknown Drug Allergy Active lisinopril Lisinopril Unknown Drug Allergy Activ e naproxen Naprosyn nausea Drug Allergy Active Nifedical XL Unknown Drug Allergy Acti ve oxycodone Oxycodone Unknown Drug Allergy Active Reason For Referral No Information Medications Medication [...] Problem Acquired hammer toe of left foot (6988118523140 103) Other hammer toe(s) (acquired), left foot (M20.42) Active confirmed Problem Acquired hammer toe of right foot (2592709743291 105) Hammer toe of right foot (M20.41) Active confirmed Problem Javed's neuroma of right foot (3548837074257 08) 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 Plan Of Treatment Pending Test Test Name Order Date [id number] Plate 04/20/2018 32862- Debride <25 sq cm 05/09/2018 Insurance Providers Payer Name Payer Address Payer Phone Subscriber Number Group Number Insured Name Patient Relationship to Insured Coverage Start Date Coverage End Date Medicare National [employer] [address] [place] [address] [id number] Donna Figueroa Self - [facility] the [facility] [address] [place] [address] [phone] [id number] Donna Figueroa Self - patient is [...] Hospitalization History Reason Date(Month/Year) childbirth 05/1959,07/1961,03/04 968,12/1969 [facility] - pt was in pain could n't striahgten her body out. Had UTI infection near kidneys. 04/11/2018
== END 2025-02-13 13:28 | disposition home or self-care (01) ==
LOC: HO.HSM 13:04
PROVIDERS: PCP Internal Medicine; Visit Provider Psychiatry & Neurology Neurology
DX: G31.84 Mild cognitive impairment of uncertain or unknown etiology (principal); G25.0 Essential tremor
CPT/HCPCS: 99214

== ENCOUNTER → 2025-02-13 13:03 | Outpatient (BNVA) | payer MEDICARE, SELFPAY | PROVIDERS: PCP Internal Medicine; Visit Provider Psychiatry & Neurology Neurology | DX: G25.0 Essential tremor (principal); G31.84 Mild cognitive impairment of uncertain or unknown etiology; Z79.82 Long term (current) use of aspirin; I10 Essential (primary) hypertension; E78.5 Hyperlipidemia, unspecified; K21.9 Gastro-esophageal reflux disease without esophagitis; E03.9 Hypothyroidism, unspecified | CPT/HCPCS: 99212 ==